=== PATIENT | male | born 1990 | race Caucasian/White ===

== ENCOUNTER 2023-08-27 10:27 | Observation (INO) | payer OTHER ==
[2023-08-27 10:48] VITALS: BMI 26.1
[2023-08-27] MEDS ORDERED: ACETAMINOPHEN INJECTION 100 ML IVPB ONE (11:23)
[2023-08-27] MEDS ORDERED: ONDANSETRON 4 MG/2 ML VIAL ONE (11:23)
[2023-08-27] MEDS: SODIUM CHLORIDE 1,000 ML IV STA (11:47)
[2023-08-27] MEDS: ONDANSETRON 4 MG/2 ML VIAL IVPUSH ONE (11:47)
[2023-08-27] MEDS: ACETAMINOPHEN 1000 MG/100 ML BAG IVPB ONE (11:47)
[2023-08-27 11:53] LABS: HEMATOCRIT 45.9 % (35.4-49); HEMOGLOBIN 15.5 GM/dL (11.7-16.9); MCH 29.8 pg (25.7-33.7); MCHC 33.7 g/dl (32.0-35.9); MEAN CELL VOLUME 88.3 fl (80-96); MEAN PLT VOLUME 8.2 fl (7.5-11.1); PLATELET COUNT 317 10^3/uL (134-434); RDW 13.4 % (11.9-15.9); WHITE BLOOD COUNT 17.7 K/mm3 (4.0-10.0)
[2023-08-27 11:59] LABS: EPI CELLS 3 /uL (0-25.1); HYALINE CASTS 0 /uL (0-3.1); INR 1.04 (0.83-1.09); PH,URINE >= 9.0 (5.0-8.0); PROTHROMBIN TIME (PATIENT) 12.1 SEC (9.7-13.0); URINE APPEARANCE TURBID; URINE BACTERIA 2 /uL (0-1359); URINE BILIRUBIN NEGATIVE (NEGATIVE); URINE COLOR YELLOW; URINE GLUCOSE (UA) NEGATIVE (NEGATIVE); URINE KETONE 1+ (NEGATIVE); URINE LEUK ESTERASE NEGATIVE (NEGATIVE); URINE NITRITE NEGATIVE (NEGATIVE); URINE PROTEIN 1+ (NEGATIVE); URINE RBC 23 /uL (0-23.9); URINE UROBILINOGEN 0.2 mg/dL (0.2-1.0); URINE WBC 2 /uL (0-25.8)
[2023-08-27 12:02] LABS: ACTIVATED PTT 32.9 SECONDS (25.2-36.5)
[2023-08-27 12:08] LABS: POTASSIUM 3.7 mmol/L (3.5-5.1)
[2023-08-27 12:10] LABS: ALBUMIN 4.5 g/dl (3.4-5.0); CALCIUM 9.5 mg/dL (8.5-10.1)
[2023-08-27 12:11] LABS: BLOOD UREA NITROGEN 8.2 mg/dL (7-18)
[2023-08-27 12:13] LABS: CREATININE 0.9 mg/dL (0.55-1.3)
[2023-08-27 12:15] LABS: BILIRUBIN,TOTAL 0.4 mg/dL (0.2-1); TOT PROT 8.6 g/dl (6.4-8.2)
[2023-08-27 12:39] LABS: ANISOCYTOSIS 0; MACROCYTOSIS 0
[2023-08-27] MEDS ORDERED: PIPERACILLIN/TAZOB 3.375 GM 3.375 GM/50 ML BAG IVPB ONE (14:15)
[2023-08-27] MEDS: PIPERACILLIN/TAZOB 3.375 GM 3.375 GM in DEXTROSE 5%-WATER - 50 ML IVPB ONE (14:46)
[2023-08-27] MEDS ORDERED: morphine SULFATE 4 MG/ML VIAL ONE (14:53)
[2023-08-27] MEDS: morphine CARPU-JECT 4 MG/1 ML DISP.SYRIN IVPUSH ONE (15:00)
[2023-08-27] MEDS: SODIUM CHLORIDE 1,000 ML IV SCH (15:00)
[2023-08-27] MEDS ORDERED: morphine SULFATE 4 MG/ML VIAL IVPUSH PRN (15:01)
[2023-08-27] MEDS: DEXTROSE 5%-LACTATED RINGERS 1,000 ML IV SCH (15:08)
[2023-08-27] MEDS ORDERED: PIPERACILLIN/TAZOB 3.375 GM 3.375 GM in DEXTROSE 5%-WATER - 50 ML IVPB SCH (15:30)
[2023-08-27] MEDS ORDERED: ACETAMINOPHEN 325 MG TABLET (FP) ONE (16:28)
[2023-08-27] MEDS: ACETAMINOPHEN 500 MG TABLET (FP) PO STA (16:32)
[2023-08-27] MEDS: PIPERACILLIN/TAZOB 3.375 GM 3.375 GM in DEXTROSE 5%-WATER - 50 ML IVPB SCH (20:06)
[2023-08-27] MEDS ORDERED: KETOROLAC TROMETHAMINE 15 MG/ML VIAL ONE (20:57)
[2023-08-27] MEDS: KETOROLAC TROMETHAMINE 15 MG/ML VIAL IVPUSH PRN (21:01)
[2023-08-28] MEDS ORDERED: PIPERACILLIN/TAZOB 3.375 GM 3.375 GM/50 ML BAG IVPB ONE (04:09)
[2023-08-28] MEDS ORDERED: ROCURONIUM BROMIDE 50 MG/5 ML SYRINGE ONE (07:22)
[2023-08-28] MEDS ORDERED: PROPOFOL 40 ML ONE (07:22)
[2023-08-28] MEDS ORDERED: MIDAZOLAM HCL 2 MG/2 ML SINGLE DOSE VIAL ONE (07:22)
[2023-08-28] MEDS ORDERED: BUPIVACAINE HCL/PF 0.25% (2.5MG/ML) 10 ML VIAL ONE (07:27)
[2023-08-28 07:44] LABS: POTASSIUM 3.7 mmol/L (3.5-5.1)
[2023-08-28 07:48] LABS: HEMATOCRIT 39.8 % (35.4-49); HEMOGLOBIN 13.3 GM/dL (11.7-16.9); MCH 29.3 pg (25.7-33.7); MCHC 33.3 g/dl (32.0-35.9); MEAN CELL VOLUME 87.9 fl (80-96); MEAN PLT VOLUME 8.7 fl (7.5-11.1); PLATELET COUNT 247 10^3/uL (134-434); RBC 4.53 M/mm3 (4.00-5.60); RDW 13.5 % (11.9-15.9); WHITE BLOOD COUNT 22.1 K/mm3 (4.0-10.0)
[2023-08-28 07:49] LABS: CALCIUM 8.4 mg/dL (8.5-10.1)
[2023-08-28 07:50] LABS: BLOOD UREA NITROGEN 5.3 mg/dL (7-18); MAGNESIUM 1.8 mg/dL (1.8-2.4)
[2023-08-28] MEDS: BUPIVACAINE HCL/PF 0.25% (2.5MG/ML) 10 ML VIAL IJ ONE (07:50)
[2023-08-28 07:52] LABS: CREATININE 0.9 mg/dL (0.55-1.3); PHOSPHOROUS 2.4 mg/dL (2.5-4.9)
[2023-08-28 07:53] LABS: BILIRUBIN,TOTAL 1.2 mg/dL (0.2-1)
[2023-08-28 07:56] LABS: ALBUMIN 3.1 g/dl (3.4-5.0); TOT PROT 6.4 g/dl (6.4-8.2)
[2023-08-28] MEDS ORDERED: DEXAMETHASONE SOD PHOSPHATE 4 MG/1 ML VIAL ONE (08:11)
[2023-08-28] MEDS ORDERED: LIDOCAINE HCL/PF 2% SDV 5ML VIAL ONE (08:11)
[2023-08-28] MEDS ORDERED: GLYCOPYRROLATE 0.2 MG/1 ML VIAL ONE (08:11)
[2023-08-28] MEDS ORDERED: KETOROLAC TROMETHAMINE 30 MG/1 ML VIAL ONE (08:11)
[2023-08-28] MEDS ORDERED: ONDANSETRON 4 MG/2 ML VIAL ONE (08:11)
[2023-08-28 08:44] LABS: ANISOCYTOSIS 0; MACROCYTOSIS 0
[2023-08-28] MEDS ORDERED: oxyCODONE HCL 5 MG TABLET PO PRN (09:24)
[2023-08-28] MEDS ORDERED: LACTATED RINGERS SOLUTION 1,000 ML IV SCH (09:46)
[2023-08-28] MEDS ORDERED: KETOROLAC TROMETHAMINE 15 MG/ML VIAL IVPUSH PRN (09:46)
[2023-08-28] MEDS ORDERED: ACETAMINOPHEN INJECTION 100 ML IVPB ONE ×2 (09:56→16:05)
[2023-08-28] MEDS: ACETAMINOPHEN 1000 MG/100 ML BAG IVPB SCH (10:00)
[2023-08-28] MEDS: PIPERACILLIN/TAZOB 3.375 GM 3.375 GM in DEXTROSE 5%-WATER - 50 ML IVPB SCH ×2 (10:49→14:00)
[2023-08-28] MEDS: LACTATED RINGERS SOLUTION 1,000 ML IV SCH (10:49)
[2023-08-28] MEDS: PIPERACILLIN/TAZOB 3.375 GM 3.375 GM/50 ML BAG IVPB ONE (13:00)
[2023-08-28 15:24] VITALS: RESP 18
[2023-08-28] MEDS: ACETAMINOPHEN 1000 MG/100 ML BAG IVPB ONE (16:00)
[2023-08-28] MEDS ORDERED: NAPH,MB-DB/K PH,MBDB POWDER PACKET PO ONE (16:19)
[2023-08-28 16:55] VITALS: TEMP 98.1
[2023-08-28 17:13] VITALS: BP 105/61; PULSE 71
[2023-08-28] MEDS ORDERED: ACETAMINOPHEN 500 MG TABLET (FP) PO PRN (22:00)
== END 2023-08-28 17:55 | disposition home or self-care (01) ==
LOC: JER 10:27 → UNDOADMOB 14:09 → INTOOBSV 14:09 → JERBED 14:09
PROVIDERS: ADMIT Internal Medicine; ATTEND Internal Medicine
PROC: 3E033NZ Introduction of Analgesics, Hypnotics, Sedatives into Peripheral Vein, Percutaneous Approach (ICD-10-PCS; 2023-08-27)
PROC: 3E0337Z Introduction of Electrolytic and Water Balance Substance into Peripheral Vein, Percutaneous Approach (ICD-10-PCS; 2023-08-27)
PROC: 3E0333Z Introduction of Anti-inflammatory into Peripheral Vein, Percutaneous Approach (ICD-10-PCS; 2023-08-27)
PROC: 3E03329 Introduction of Other Anti-infective into Peripheral Vein, Percutaneous Approach (ICD-10-PCS; 2023-08-27)
PROC: 3E033GC Introduction of Other Therapeutic Substance into Peripheral Vein, Percutaneous Approach (ICD-10-PCS; 2023-08-27)
PROC: 0DTJ4ZZ Resection of Appendix, Percutaneous Endoscopic Approach (ICD-10-PCS; principal; 2023-08-28 07:30)
DX: K35.890 Other acute appendicitis without perforation or gangrene (principal); Z29.89 Encounter for other specified prophylactic measures
CPT/HCPCS: 0241U-QW; 36415; 74177-TC; 80053; 81003; 83690; 83735; 84100; 85025; 85610; 85730; 86850; 86900; 86901; 88304-TC; 93005; 93010; 94760; 96361; 96365; 96366; 96367; 96375; 96376; 99285-25; G0378; J0131; Q9967